=== PATIENT | male | born 1955 | race Caucasian/White ===

== ENCOUNTER 2018-11-27 09:31 | Inpatient (IN) | payer OTHER, BC ==
--- OUTSIDE RECORDS SUMMARY | 2018-11-27 09:39 | XMS REPORT ---
:1955 [facility] Address [address] [place] [address] Care Team Providers Name Role Phone Unavailable Unavailable Unavailable Payers Payer Name Policy Type Policy Number Effective Date Expiration Date Problems This patient has no known problems. Allergies, Adverse Reactions, Alerts Allergy Allergy Status Severity Reaction(s) Onset Inactive Treating Comments Name Type Date Date Clinician No Known DA Active U 2018-09 Allergies -28 00:00:0 0 No Known DA Active U 2016-05 Allergies -26 00:00:0 0 Medications This patient has no known medications.
[2018-11-27] MEDS ORDERED: ONDANSETRON 4 MG/2 ML VIAL IV PRN (10:14)
[2018-11-27] MEDS: PANTOPRAZOLE INJ 80 MG in NA CHLORIDE 0.9% 250 ML IV SCH ×2 (10:34→19:53)
[2018-11-27] MEDS: OCTREOTIDE 500 MCG in NA CHLORIDE 0.9% 500 ML IV SCH ×2 (10:35→19:53)
[2018-11-27 10:42] LABS: Absolute Lymphocytes (CBC) 1.9 K/uL (0.7-4.9); Absolute Monocytes 0.6 K/uL (0.1-1.3); Absolute Neutrophil 3.8 K/uL (1.8-8.0); Basophils % 0.4 % (0-1.3); Hematocrit 31.5 % (39.6-49.0); Lymphocytes % 29.1 % (15.3-44.8); MPV 7.9 fL (7.6-11.3); RBC Red Blood Cell Count 3.39 M/uL (4.33-5.43)
[2018-11-27 10:50] LABS: ALT/SGPT 38 U/L (12-78); AST/SGOT 68 U/L (15-37); Albumin 2.2 g/dL (3.4-5.0); Alkaline Phosphatase 122 U/L (45-117); BUN Blood Urea Nitrogen 15 mg/dL (7-18); Bicarbonate 27 mmol/L (21-32); Glucose Level 106 mg/dL (74-106); Magnesium 2.2 mg/dL (1.8-2.4); Phosphorus 2.6 mg/dL (2.5-4.9); Potassium 5.2 mmol/L (3.5-5.1); Sodium Level 143 mmol/L (136-145)
[2018-11-27 12:36] LABS: Protime INR 1.23
[2018-11-27] MEDS: NA CHLORIDE 0.9% 1,000 ML IV SCH (12:57)
--- NOTE | 2018-11-27 15:08 | P.HP ---
Certification for Inpatient Patient admitted to: Inpatient With expected LOS: >2 Midnights Patient will require the following post-hospital care: None Practitioner: I am a practitioner with admitting privileges, knowledge of patient current condition, hospital course, and medical plan of care. Services: Services provided to patient in accordance with Admission requirements found in Title 42 Section 412.3 of the Code of Federal Regulations Patient History Date of Service: 11/27/18 Reason for admission: GI bleed History of Present Illness: This is a 63-year-old male with significant past medical history of alcohol a liver cirrhosis, hepatitis-C, esophageal varices, CAD, GERD, presenting to the hospital direct admission from Dr. DELMI pisano office. Patient was scheduled to get an EGD done today with a GI doctor and was found to have severe gastritis the along with grade 2-3 esophageal bleed. Patient was sent over to the hospital for admission to the hospital for acute upper GI bleed and found during the EGD procedure. Patient also stated that for past couple of days he has been feeling generalized weakness and dizziness as well. Patient has had colonoscopy 2 weeks ago with several polyps. Patient states that he had previously EGD all which were consistent with gastritis along with esophageal swelling. His last alcoholic beverage was in 2014 and he has not changed ever since. Patient has also been complaining of having some at the taxes for past couple of days as well. No other complaints to offer. Patient stated that his although meant are within normal limits and no melena has been noted. Allergies No Known Allergies Allergy (Unverified 11/27/18 10:04) Home Medications: Pantoprazole Sodium [Protonix] 40 mg PO DAILY 11/27/18 Propranolol HCl 10 mg PO BID 11/27/18 - Past Medical/Surgical History Has patient received pneumonia vaccine in the past: Yes Diabetic: No -: Hepatitis C -: Cirrhosis -: GERD -: Arthritis -: Fibromyalgia -: [place] 2012 -: Choleycystectomy -: Rotator Cuff Repair -: Coronary Stent - Family History Father -: Heart disease Mother -: Heart disease Brother History Unknown: Yes -: Stroke Notes: Pt had a brother from Down Syndrome - Social History Smoking Status: Former smoker Alcohol use: No CD- Drugs: No Caffeine use: No Place of Residence: Home Review of Systems 10-point ROS is otherwise unremarkable Physical Examination - Vital Signs Blood Pressure: 146/81 Pulse: 64 Respirations: 20 Pulse Ox (%): 99 - Physical Exam General: Alert, In no apparent distress HEENT: Atraumatic, PERRLA, Mucous membr. moist/pink, EOMI, Sclerae nonicteric Neck: Supple, 2+ carotid pulse no bruit, No LAD, Without JVD or thyroid abnormality Respiratory: Clear to auscultation bilaterally, Normal air movement Cardiovascular: Regular rate/rhythm, Normal S1 S2 Gastrointestinal: Normal bowel sounds, No tenderness Musculoskeletal: No tenderness Integumentary: No rashes Neurological: Normal gait, Normal speech, Normal strength at 5/5 x4 extr, Normal tone, Normal affect Lymphatics: No axilla or inguinal lymphadenopathy - Studies Laboratory Data (last 24 hrs) 11/27/18 12:20: PT 14.5 H, INR 1.23, APTT 43.4 H 11/27/18 10:12: Sodium 143, Potassium 5.2 H, BUN 15, Creatinine 0.69, Glucose 106, Phosphorus 2.6, Magnesium 2.2, Total Bilirubin 1.0, AST 68 H, ALT 38, Alkaline Phosphatase 122 H 11/27/18 10:12: WBC 6.5, Hgb 10.5 L, Hct 31.5 L, Plt Count 166 Assessment and Plan - Problems (Diagnosis) (1) Upper GI bleed Current Visit: Yes Status: Acute Plan: Upper GI bleed noted during EGD by the GI specialist -hemoglobin is at 10.5 at this time -most likely secondary to esophageal varices bleeding -IV octreotide and Protonix at this time -GI has been consulted here in the hospital. Appreciated recommendations at this time -NPO, IV fluids, H&H q.4 hr -will transfuse if needed (2) Liver cirrhosis Current Visit: Yes Status: Chronic Plan: Chronic alcoholic cirrhosis -last alcoholic beverage in 2014 -failed outpatient therapy for liver cirrhosis and esophageal varices -will continue to monitor here closely -Restart home medication at this time Qualifiers: Hepatic cirrhosis type: alcoholic cirrhosis Ascites presence: without ascites Qualified Code(s): K70.30 - Alcoholic cirrhosis of liver without ascites (3) Hepatitis C Current Visit: Yes Status: Chronic Plan: Chronic hepatitis-C. Currently not on any medication. Qualifiers: Viral hepatitis chronicity: chronic Hepatic coma status: without hepatic coma Qualified Code(s): B18.2 - Chronic viral hepatitis C (4) Esophageal varices Current Visit: Yes Status: Chronic Plan: Chronic esophageal varices most likely secondary to liver cirrhosis -currently on propanolol at the house. Will continue that here in the hospital -esophageal varices now with acute bleeding. Will monitor closely. Qualifiers: Esophageal varices type: secondary Esophageal varices bleeding: with bleeding Qualified Code(s): I85.11 - Secondary esophageal varices with bleeding (5) CAD (coronary artery disease) Current Visit: Yes Status: Chronic Plan: Patient currently taking beta inez. Not on any anti coagulation. Will hold aspirin at this time as well. Qualifiers: Coronary Disease-Associated Artery/Lesion type: [place] artery [place] vs. transplanted heart: [place] heart Associated angina: without angina Qualified Code(s): I25.10 - Atherosclerotic heart disease of [place] coronary artery without angina pectoris (6) Hypertension Current Visit: Yes Status: Chronic Plan: Restart home medication at this time Qualifiers: Hypertension type: essential hypertension Qualified Code(s): I10 - Essential (primary) hypertension Discharge Plan: Home Plan to discharge in: 48 Hours - Advance Directives Does patient have a Living Will: No Does patient have a Durable POA for Healthcare: Yes - Code Status/Comfort Care Code Status Assessed: Yes Critical Care: Yes
[2018-11-27 16:37] LABS: Hematocrit 29.8 % (39.6-49.0)
[2018-11-28] MEDS: NA CHLORIDE 0.9% 1,000 ML IV SCH ×3 (00:30→17:32)
[2018-11-28] MEDS: PANTOPRAZOLE INJ 80 MG in NA CHLORIDE 0.9% 250 ML IV SCH ×2 (05:04→17:25)
[2018-11-28] MEDS: OCTREOTIDE 500 MCG in NA CHLORIDE 0.9% 500 ML IV SCH ×2 (05:04→17:25)
[2018-11-28 05:38] LABS: Absolute Lymphocytes (CBC) 2.9 K/uL (0.7-4.9); Absolute Monocytes 0.5 K/uL (0.1-1.3); Absolute Neutrophil 2.4 K/uL (1.8-8.0); Basophils % 0.5 % (0-1.3); Eosinophils % 3.2 % (0-4.4); Hematocrit 27.1 % (39.6-49.0); Lymphocytes % 48.9 % (15.3-44.8); Monocytes % 8.2 % (3.3-12.3); RBC Red Blood Cell Count 2.97 M/uL (4.33-5.43)
[2018-11-28 06:08] LABS: ALT/SGPT 43 U/L (12-78); AST/SGOT 111 U/L (15-37); Alkaline Phosphatase 96 U/L (45-117); BUN Blood Urea Nitrogen 10 mg/dL (7-18); Bicarbonate 23 mmol/L (21-32); Bilirubin Total 1.4 mg/dL (0.2-1.0); Glucose Level 98 mg/dL (74-106); Potassium 4.1 mmol/L (3.5-5.1); Sodium Level 144 mmol/L (136-145)
--- NOTE | 2018-11-28 08:30 | RAD REPORT ---
EXAM DESCRIPTION: RAD - Chest Single View - 11/28/2018 6:39 am CLINICAL HISTORY: SOB Chest pain. COMPARISON: No comparisons FINDINGS: Portable technique limits examination quality. The lungs are grossly clear. The heart is normal in size. No displaced fractures. IMPRESSION: No acute intrathoracic process suspected.
--- NOTE | 2018-11-28 13:49 | P.PN ---
Subjective Date of Service: 11/28/18 Chief Complaint: GI bleed Subjective: No C/O voiced, Ambulating, Improving, NPO, Working w/ PT, Doing well Review of Systems 10-point ROS is otherwise unremarkable Physical Examination - Vital Signs Temperature: 99.2 F Blood Pressure: 135/74 Pulse: 69 Respirations: 20 Pulse Ox (%): 99 - Physical Exam General: Alert, In no apparent distress HEENT: Atraumatic, PERRLA, EOMI Neck: Supple, JVD not distended Respiratory: Clear to auscultation bilaterally, Normal air movement Cardiovascular: Regular rate/rhythm, Normal S1 S2 Gastrointestinal: Normal bowel sounds, No tenderness Musculoskeletal: No tenderness Integumentary: No rashes Neurological: Normal speech, Normal tone, Normal affect Lymphatics: No axilla or inguinal lymphadenopathy - Studies Laboratory Data (last 24 hrs) 11/28/18 05:14: Sodium 144, Potassium 4.1, BUN 10, Creatinine 0.76, Glucose 98, Total Bilirubin 1.4 H, AST 111 H, ALT 43, Alkaline Phosphatase 96 11/28/18 05:14: WBC 6.0, Hgb 9.1 L, Hct 27.1 L, Plt Count 171 11/27/18 16:19: Hgb 9.9 L, Hct 29.8 L Medications List Reviewed: Yes Assessment And Plan - Current Problems (Diagnosis) (1) Upper GI bleed Onset Date: 11/28/18 Current Visit: Yes Status: Acute Plan: Upper GI bleed noted during EGD by the GI specialist -hemoglobin is at 9.1 at this time -most likely secondary to esophageal varices bleeding -IV octreotide and Protonix at this time -GI has been consulted here in the hospital. Appreciated recommendations at this time -NPO, IV fluids, H&H q.4 hr -will transfuse if needed (2) Liver cirrhosis Onset Date: 11/28/18 Current Visit: Yes Status: Chronic Plan: Chronic alcoholic cirrhosis -last alcoholic beverage in 2014 -failed outpatient therapy for liver cirrhosis and esophageal varices -will continue to monitor here closely -Restart home medication at this time Qualifiers: Hepatic cirrhosis type: alcoholic cirrhosis Ascites presence: without ascites Qualified Code(s): K70.30 - Alcoholic cirrhosis of liver without ascites (3) Hepatitis C Onset Date: 11/28/18 Current Visit: Yes Status: Chronic Plan: Chronic hepatitis-C. Currently not on any medication. Qualifiers: Viral hepatitis chronicity: chronic Hepatic coma status: without hepatic coma Qualified Code(s): B18.2 - Chronic viral hepatitis C (4) Esophageal varices Onset Date: 11/28/18 Current Visit: Yes Status: Chronic Plan: Chronic esophageal varices most likely secondary to liver cirrhosis -currently on propanolol at the house. Will continue that here in the hospital -esophageal varices now with acute bleeding. Will monitor closely. Qualifiers: Esophageal varices type: secondary Esophageal varices bleeding: with bleeding Qualified Code(s): I85.11 - Secondary esophageal varices with bleeding (5) CAD (coronary artery disease) Onset Date: 11/28/18 Current Visit: Yes Status: Chronic Plan: Patient currently taking beta inez. Not on any anti coagulation. Will hold aspirin at this time as well. Qualifiers: Coronary Disease-Associated Artery/Lesion type: [place] artery [place] vs. transplanted heart: [place] heart Associated angina: without angina Qualified Code(s): I25.10 - Atherosclerotic heart disease of [place] coronary artery without angina pectoris (6) Hypertension Onset Date: 11/28/18 Current Visit: Yes Status: Chronic Plan: Restart home medication at this time Qualifiers: Hypertension type: essential hypertension Qualified Code(s): I10 - Essential (primary) hypertension Discharge Plan: Home Plan to discharge in: 72 Hours - Code Status/Comfort Care Code Status Assessed: Yes Critical Care: No
[2018-11-28] MEDS ORDERED: NS 0.9% VIAL 0 ML ONE (15:30)
[2018-11-28] MEDS ORDERED: PROPOFOL 200 MG/20 ML VIAL IV ONE (15:31)
[2018-11-28] MEDS ORDERED: LIDOCAINE 1% MPF 2 ML AMPULE ONE (15:32)
[2018-11-28] MEDS: MORPHINE 4 MG/ML SYR ONE ×2 (16:14→16:21)
[2018-11-28] MEDS ORDERED: MORPHINE 4 MG/ML SYR ONE (16:38)
[2018-11-28] MEDS: MORPHINE 4 MG/ML SYR IV PRN ×2 (17:36→21:11)
[2018-11-28] MEDS ORDERED: PROPRANOLOL HCL 10 MG PO SCH (21:00)
[2018-11-28] MEDS: PROPRANOLOL HCL 10 MG TAB PO SCH (21:06)
[2018-11-29] MEDS: PANTOPRAZOLE INJ 80 MG in NA CHLORIDE 0.9% 250 ML IV SCH (03:33)
[2018-11-29] MEDS: OCTREOTIDE 500 MCG in NA CHLORIDE 0.9% 500 ML IV SCH (03:34)
[2018-11-29] MEDS: NA CHLORIDE 0.9% 1,000 ML IV SCH (05:08)
[2018-11-29 05:13] LABS: Absolute Monocytes 0.4 K/uL (0.1-1.3); Absolute Neutrophil 1.9 K/uL (1.8-8.0); Basophils % 0.6 % (0-1.3); Eosinophils % 4.5 % (0-4.4); Hematocrit 25.4 % (39.6-49.0); Lymphocytes % 44.2 % (15.3-44.8); MPV 7.4 fL (7.6-11.3); Monocytes % 9.8 % (3.3-12.3); RBC Red Blood Cell Count 2.76 M/uL (4.33-5.43)
[2018-11-29 05:28] LABS: ALT/SGPT 39 U/L (12-78); AST/SGOT 97 U/L (15-37); Albumin 1.9 g/dL (3.4-5.0); Alkaline Phosphatase 93 U/L (45-117); BUN Blood Urea Nitrogen 8 mg/dL (7-18); Bicarbonate 24 mmol/L (21-32); Bilirubin Total 1.1 mg/dL (0.2-1.0); Glucose Level 116 mg/dL (74-106); Potassium 3.4 mmol/L (3.5-5.1); Protein, Total 5.8 g/dL (6.4-8.2); Sodium Level 144 mmol/L (136-145)
[2018-11-29] MEDS: MORPHINE 4 MG/ML SYR IV PRN (08:21)
[2018-11-29] MEDS: PROPRANOLOL HCL 10 MG TAB PO SCH ×2 (10:37→20:52)
[2018-11-29] MEDS ORDERED: TRAMADOL HCL 50 MG TAB PO PRN (10:41)
--- NOTE | 2018-11-29 10:59 | P.PN ---
Subjective Date of Service: 11/29/18 Chief Complaint: GI bleed Patient seen and examined at bedside with RN. Chart reviewed. Case discussed with GI. Currently patient is status post EGD. Doing well overall. Currently on IV Protonix and octreotide. Tolerating diet well. Review of Systems 10-point ROS is otherwise unremarkable Physical Examination - Vital Signs Temperature: 98.1 F Blood Pressure: 149/78 Pulse: 66 Respirations: 16 Pulse Ox (%): 100 - Physical Exam General: Alert, In no apparent distress HEENT: Atraumatic, PERRLA, EOMI Neck: Supple, JVD not distended Respiratory: Clear to auscultation bilaterally, Normal air movement Cardiovascular: Regular rate/rhythm, Normal S1 S2 Gastrointestinal: Normal bowel sounds, No tenderness Musculoskeletal: No tenderness Integumentary: No rashes Neurological: Normal speech, Normal tone, Normal affect Lymphatics: No axilla or inguinal lymphadenopathy - Studies Laboratory Data (last 24 hrs) 11/29/18 04:43: Sodium 144, Potassium 3.4 L, BUN 8, Creatinine 0.67, Glucose 116 H, Total Bilirubin 1.1 H, AST 97 H, ALT 39, Alkaline Phosphatase 93 11/29/18 04:43: WBC 4.6 D, Hgb 8.4 L, Hct 25.4 L, Plt Count 140 L Medications List Reviewed: Yes Assessment And Plan - Current Problems (Diagnosis) (1) Upper GI bleed Onset Date: 11/28/18 Current Visit: Yes Status: Acute Plan: Upper GI bleed noted during EGD by the GI specialist -status post EGD at this time. -EGD consistent with esophageal varices versus gastric varices. -GI consulted. Appreciated recommendations at this time -was which patient over to p.o. Protonix b.i.d. at this time -Dc octreotide drip -transfer patient to the regular floor monitor for next 24-48 hr (2) Liver cirrhosis Onset Date: 11/28/18 Current Visit: Yes Status: Chronic Plan: Chronic alcoholic cirrhosis -last alcoholic beverage in 2014 -failed outpatient therapy for liver cirrhosis and esophageal varices -will continue to monitor here closely -Restart home medication at this time Qualifiers: Hepatic cirrhosis type: alcoholic cirrhosis Ascites presence: without ascites Qualified Code(s): K70.30 - Alcoholic cirrhosis of liver without ascites (3) Hepatitis C Onset Date: 11/28/18 Current Visit: Yes Status: Chronic Plan: Chronic hepatitis-C. Currently not on any medication. Qualifiers: Viral hepatitis chronicity: chronic Hepatic coma status: without hepatic coma Qualified Code(s): B18.2 - Chronic viral hepatitis C (4) Esophageal varices Onset Date: 11/28/18 Current Visit: Yes Status: Chronic Plan: Chronic esophageal varices most likely secondary to liver cirrhosis -currently on propanolol at the house. Will continue that here in the hospital Qualifiers: Esophageal varices type: secondary Esophageal varices bleeding: with bleeding Qualified Code(s): I85.11 - Secondary esophageal varices with bleeding (5) CAD (coronary artery disease) Onset Date: 11/28/18 Current Visit: Yes Status: Chronic Plan: -Patient currently taking beta inez. -Not on any anti coagulation. -Will hold aspirin at this time as well. Qualifiers: Coronary Disease-Associated Artery/Lesion type: [place] artery [place] vs. transplanted heart: [place] heart Associated angina: without angina Qualified Code(s): I25.10 - Atherosclerotic heart disease of [place] coronary artery without angina pectoris (6) Hypertension Onset Date: 11/28/18 Current Visit: Yes Status: Chronic Plan: Restart home medication at this time Qualifiers: Hypertension type: essential hypertension Qualified Code(s): I10 - Essential (primary) hypertension - Plan Patient pending clinical improvement at this time. Will transfer to medical surgical floor for further observation. Anticipate discharge as early as 24-48 hr Discharge Plan: Home Plan to discharge in: 48 Hours - Code Status/Comfort Care Code Status Assessed: Yes Critical Care: No
[2018-11-29] MEDS: PANTOPRAZOLE 40MG TABLET PO SCH (16:22)
[2018-11-29] MEDS ORDERED: POTASSIUM 25 MEQ EFFERV TAB PO ONE (21:00)
[2018-11-30 04:26] LABS: Absolute Lymphocytes (CBC) 1.9 K/uL (0.7-4.9); Absolute Monocytes 0.4 K/uL (0.1-1.3); Absolute Neutrophil 2.8 K/uL (1.8-8.0); Basophils % 0.9 % (0-1.3); Eosinophils % 3.8 % (0-4.4); Hematocrit 25.4 % (39.6-49.0); Lymphocytes % 35.4 % (15.3-44.8); MPV 7.5 fL (7.6-11.3); Monocytes % 7.8 % (3.3-12.3); RBC Red Blood Cell Count 2.78 M/uL (4.33-5.43)
[2018-11-30 04:39] LABS: ALT/SGPT 38 U/L (12-78); AST/SGOT 86 U/L (15-37); Alkaline Phosphatase 105 U/L (45-117); BUN Blood Urea Nitrogen 5 mg/dL (7-18); Bicarbonate 26 mmol/L (21-32); Bilirubin Total 0.9 mg/dL (0.2-1.0); Glucose Level 113 mg/dL (74-106); Potassium 4.2 mmol/L (3.5-5.1); Sodium Level 145 mmol/L (136-145)
[2018-11-30] MEDS: PANTOPRAZOLE 40MG TABLET PO SCH (08:59)
[2018-11-30] MEDS: PROPRANOLOL HCL 10 MG TAB PO SCH (08:59)
--- NOTE | 2018-11-30 12:11 | P.DS ---
Admission Date: 11/27/18 Discharge Date: 11/30/18 Disposition: ROUTINE DISCHARGE Discharge Condition: GOOD Reason for Admission: GI bleed Consultations: GI - Problems (1) Upper GI bleed Onset Date: 11/28/18 Status: Acute (2) Liver cirrhosis Onset Date: 11/28/18 Status: Chronic Qualifiers: Hepatic cirrhosis type: alcoholic cirrhosis Ascites presence: without ascites Qualified Code(s): K70.30 - Alcoholic cirrhosis of liver without ascites (3) Hepatitis C Onset Date: 11/28/18 Status: Chronic Qualifiers: Viral hepatitis chronicity: chronic Hepatic coma status: without hepatic coma Qualified Code(s): B18.2 - Chronic viral hepatitis C (4) Esophageal varices Onset Date: 11/28/18 Status: Chronic Qualifiers: Esophageal varices type: secondary Esophageal varices bleeding: with bleeding Qualified Code(s): I85.11 - Secondary esophageal varices with bleeding (5) CAD (coronary artery disease) Onset Date: 11/28/18 Status: Chronic Qualifiers: Coronary Disease-Associated Artery/Lesion type: [place] artery [place] vs. transplanted heart: [place] heart Associated angina: without angina Qualified Code(s): I25.10 - Atherosclerotic heart disease of [place] coronary artery without angina pectoris (6) Hypertension Onset Date: 11/28/18 Status: Chronic Qualifiers: Hypertension type: essential hypertension Qualified Code(s): I10 - Essential (primary) hypertension Brief History of Present Illness: This is a 63-year-old male with significant past medical history of alcohol a liver cirrhosis, hepatitis-C, esophageal varices, CAD, GERD, presenting to the hospital direct admission from Dr. DELMI pisano office. Patient was scheduled to get an EGD done today with a GI doctor and was found to have severe gastritis the along with grade 2-3 esophageal bleed. Patient was sent over to the hospital for admission to the hospital for acute upper GI bleed and found during the EGD procedure. Patient also stated that for past couple of days he has been feeling generalized weakness and dizziness as well. Patient has had colonoscopy 2 weeks ago with several polyps. Patient states that he had previously EGD all which were consistent with gastritis along with esophageal swelling. His last alcoholic beverage was in 2014 and he has not changed ever since. Patient has also been complaining of having some at the taxes for past couple of days as well. No other complaints to offer. Patient stated that his although meant are within normal limits and no melena has been noted. Hospital Course: Overall during the hospital stay patient remained stable Patient was initially admitted to the hospital for upper GI bleed was found to have acute blood this anemia. Patient had GI consulted here in the hospital who did a EGD and was found to have esophageal and gastric varices. Patient was initially placed on IV Protonix and IV octreotide due to the history of liver cirrhosis secondary to hepatitis-C and alcoholism. Patient did well overall hemoglobin did stay stable while here in the hospital. Patient did not require any transfusion while here in the hospital. Patient then was switched over to oral Protonix and octreotide was Dc after the EGD was done. Patient was asked to continue Protonix b.i.d. and follow up with GI in about couple of days post discharge. Patient was also asked to follow up with a liver specialist in [place] for possible liver transplant versus TIPS procedure for his esophageal varices and gastric varices. Patient was started on propanolol which she used to take before as well. Patient was asked to not take any anti coagulation including aspirin at this time as his risk of GI bleeding outweighs the benefit of CAD treatment with aspirin. Patient demonstrated understanding and thus was discharged home under stable condition. Vital Signs/Physical Exam: Temp Pulse Resp BP Pulse Ox 99.9 F 63 16 109/50 L 98 11/30/18 08:00 11/30/18 08:59 11/30/18 08:00 11/30/18 08:59 11/30/18 08:00 General: Alert, In no apparent distress HEENT: Atraumatic, PERRLA, EOMI Neck: Supple, JVD not distended Respiratory: Clear to auscultation bilaterally, Normal air movement Cardiovascular: Regular rate/rhythm, Normal S1 S2 Gastrointestinal: Normal bowel sounds, No tenderness Musculoskeletal: No tenderness Integumentary: No rashes Neurological: Normal speech, Normal tone, Normal affect Lymphatics: No axilla or inguinal lymphadenopathy Laboratory Data at Discharge: WBC 5.4 K/uL (4.3-10.9) D 11/30/18 04:00 Hgb 8.5 g/dL (13.6-17.9) L 11/30/18 04:00 Hct 25.4 % (39.6-49.0) L 11/30/18 04:00 Plt Count 148 K/uL (152-406) L 11/30/18 04:00 PT 14.5 SECONDS (9.5-12.5) H 11/27/18 12:20 INR 1.23 11/27/18 12:20 APTT 43.4 SECONDS (24.3-36.9) H 11/27/18 12:20 Sodium 145 mmol/L (136-145) 11/30/18 04:00 Potassium 4.2 mmol/L (3.5-5.1) 11/30/18 04:00 BUN 5 mg/dL (7-18) L 11/30/18 04:00 Creatinine 0.73 mg/dL (0.55-1.3) 11/30/18 04:00 Glucose 113 mg/dL (74-106) H 11/30/18 04:00 Phosphorus 2.6 mg/dL (2.5-4.9) 11/27/18 10:12 Magnesium 2.2 mg/dL (1.8-2.4) 11/27/18 10:12 Total Bilirubin 0.9 mg/dL (0.2-1.0) 11/30/18 04:00 AST 86 U/L (15-37) H 11/30/18 04:00 ALT 38 U/L (12-78) 11/30/18 04:00 Alkaline Phosphatase 105 U/L (45-117) 11/30/18 04:00 Home Medications: Propranolol HCl 10 mg PO BID 11/27/18 Pantoprazole [Protonix Tab*] 40 mg PO BIDAC #60 tab 11/30/18 New Medications: Pantoprazole [Protonix Tab*] 40 mg PO BIDAC #60 tab Diet: Regular Activity: Ad deven Followup: Rigo Godinez MD [ACTIVE - CAN ADMIT] - (call to schedule appointment)
--- NOTE | 2018-12-02 04:01 | OP ---
Date of Procedure: 11/28/2018 Surgeon: Rigo Godinez MD Procedure To Be Performed: Esophagogastroduodenoscopy. Performing Physician: Rigo Godinez M.D. Indication For Procedure: Upper GI bleed. Plan For Anesthesia: Monitored anesthesia care. Complexity: High due to probability of therapeutic intervention. Technique: After obtaining informed consent from the patient explaining risks and complications, whi ch include, but are not limited to bleeding, infection, perforation, and anesthesia complication, the patient was placed in left lateral position and sedation was given. From then on, the scope was adv anced into the mouth and carefully guided up till the second portion of the duodenum. Few possible s tigmata of recent bleeding were seen. These were treated as stated below. After the completion of e xamination, the equipment and scope were withdrawn, and the procedure terminated in a safe manner. Findings: Esophagus: The upper and mid esophagus were normal; however, in the distal esophagus, the re was evidence of grade 2 to 3 varices. Some of these did have red signs. Also, there was continua tion of these varices with small gastric fundic varices of the GOV 1 type. One of the gastric varix also had a red sign. Also seen was evidence of esophagitis and some ulceration in the distal esophag us; however, it is unclear the exact source of bleeding, but due to high risk stigmata on the varices and communication with the gastric varices, decision was taken to band the esophageal varices. So, 2 bands were placed successfully. Stomach: As stated above, fundic varices of the GOV 1 type was seen. One of them had a red sign; ho wever, this was not actively bleeding. Diffuse erythema seen in the body and antrum. No evidence of ulceration. Duodenum, the bulb and second portion appeared normal. Complications: None. Tolerance Of Anesthesia: Excellent. Postoperative Diagnoses: Esophageal and gastric varices with high risk stigmata; banding of esophage al varices done; esophagitis; gastritis. Plan: Continue PPI and octreotide for now. Can start clear liquids from tomorrow and advance as marcello erated. Can also switch to oral PPI from tomorrow. If there is no further evidence of bleeding, the patient can be discharged within 48 hours and follow up in the GI clinic. He would also need evalua tion with [facility] for further management and for management of gastric varices. If there is prudence leed, he will need to be transferred to a [facility] for the treatment of gastric variceal bleeding. US/MODL Voice ID: [id number] Report ID: [id number]
== END 2018-11-30 11:32 | disposition home or self-care (01) | DRG 368 ==
LOC: 3RD-ICU 09:37 → 4TH 11-29 17:40
PROVIDERS: ADMIT Family Medicine; ATTEND Family Medicine
PROC: 06L34CZ Occlusion of Esophageal Vein with Extraluminal Device, Percutaneous Endoscopic Approach (ICD-10-PCS; principal; 2018-11-28 13:45)
DX: I85.11 Secondary esophageal varices with bleeding (principal); K29.61 Other gastritis with bleeding; D62 Acute posthemorrhagic anemia; K70.30 Alcoholic cirrhosis of liver without ascites; B18.2 Chronic viral hepatitis C; I25.10 Atherosclerotic heart disease of native coronary artery without angina pectoris; I10 Essential (primary) hypertension; K21.9 Gastro-esophageal reflux disease without esophagitis; I86.4 Gastric varices; M19.90 Unspecified osteoarthritis, unspecified site; M79.7 Fibromyalgia; I25.2 Old myocardial infarction; Z95.5 Presence of coronary angioplasty implant and graft; Z87.891 Personal history of nicotine dependence
CPT/HCPCS: 36415; 71045; 80053; 83735; 84100; 85014; 85018; 85025; 85610; 85730; C9113; J2001; J2354; J2704; J7030